=== PATIENT | female | born 1940 | race Caucasian/White ===

== ENCOUNTER 2019-06-26 18:58 | Emergency (ER) | payer OTHER ==
[~2019-06-26] VITALS: Ht 162.6 cm; Wt 59.0 kg
[~2019-06-26 18:58] MED LIST: BENADRYL ALLERG25 MG PO; BOTOX100 UNIT; FLONASE 0.05%50 MCG NASAL; IBUPROFEN 200200 M1 PO; IBUPROFEN 400400 M2 PO; LOPERAMIDE 2 MG2 M1 PO; NORCO 5-325 TA1 EACH PO; PENTASA 250 MG250 MG PO; QUESTRAN LIGHT P4 GM; QUESTRAN LIGHT210 GM PO; REGLAN 10 MG TA10 M1 PO; ZPAK PO; [UNRECOGNIZED DRUG - REMARK]
[2019-06-26 19:31] LABS: ABSOLUTE NEUTROPHILS 2.9 thou/uL (1.4-8.2); BASOPHILS 0.6 % (0.0-2.0); EOSINOPHILS 2.6 % (0.0-3.0); HEMATOCRIT 40.1 % (37.0-47.0); LYMPHOCYTES 39.3 % (24.0-44.0); MCH 28.8 pg (26.0-34.0); MCHC 32.6 g/dL (28.0-37.0); MCV 88.5 fL (80.0-100.0); MONOCYTES 9.3 % (1.0-8.0); PLATELET COUNT 214 thou/uL (150-400); POLYS 48.2 % (36.0-66.0); RBC 4.52 mil/uL (4.20-5.00); RDW 14.3 % (10.5-14.5); WBC 6.1 thou/uL (4.0-11.0)
[2019-06-26 19:46] LABS: ANION GAP 8 mmol/L (7-16); BUN 11 mg/dL (7-18); CALCIUM 9.2 mg/dL (8.5-10.1); CHLORIDE 104 mmol/L (98-107); CO2 28 mmol/L (21-32); CREATININE 0.8 mg/dL (0.6-1.0); GLUCOSE 100 mg/dL (74-106); POTASSIUM 4.7 mmol/L (3.5-5.1); SODIUM 140 mmol/L (136-145)
[2019-06-26 19:56] LABS: ALBUMIN 3.8 g/dL (3.4-5.0); DIRECT BILIRUBIN < 0.1 mg/dL (<0.1-0.3); SGOT 37 U/L (15-37); SGPT 22 U/L (30-65); TOTAL BILIRUBIN 0.6 mg/dL (<0.1-1.0)
[2019-06-26] MEDS ORDERED: MECLIZINE HCL25 MG PO (20:59)
[2019-06-26] MEDS ORDERED: ZOFRAN ODT4 MG PO (21:00)
[2019-06-26 21:09] VITALS: BP 107/42
--- NOTE | 2019-06-28 12:17 | EKG ---
[address] [address] ELECTROCARDIOGRAM REPORT Name: JOSELO HERNÁNDEZ Room #: [facility]#: [id number] Admission: 06/26/19 Attend Phys: Discharge: 06/26/19 Date of : 40 Report #: [id number] THIS REPORT FOR: //name// [facility] ED Test Date: 2019-06-26 Test Time: 19:20:52 Pat Name: JOSELO HERNÁNDEZ Department: Room: Gender: F Systems Programmer: : [id number] Requested By: Isabel Gaitan Order Number: [id number] MD: Severiano Blanchard Measurements Intervals [place] Rate: 59 P: 7 IA: 191 QRS: 3 QRSD: 94 T: 56 QT: 443 QTc: 439 Interpretive Statements Sinus rhythm Low voltage, extremity leads Compared to ECG 05/20/2014 01:49:43 Myocardial infarct finding no longer present Electronically Signed On 06-28-2019 12:17:00 EMERGENCY DEPARTMENT MANAGER by Severiano Blanchard [email or web address] <ELECTRONICALLY SIGNED> By: Severiano Blanchard MD 06/28/19 1217 192 1920 Severiano Blanchard MD /SERAFIN
== END 2019-06-26 21:11 | disposition home or self-care (01) ==
LOC: ER 18:58
PROVIDERS: Emergency Medicine
DX: R42 Dizziness and giddiness (principal); E78.00 Pure hypercholesterolemia, unspecified; K90.0 Celiac disease; G43.909 Migraine, unspecified, not intractable, without status migrainosus; Z90.49 Acquired absence of other specified parts of digestive tract; Z90.710 Acquired absence of both cervix and uterus; Z88.0 Allergy status to penicillin; Z88.6 Allergy status to analgesic agent; Z88.8 Allergy status to other drugs, medicaments and biological substances; Z88.4 Allergy status to anesthetic agent